=== PATIENT | male | born 1940 | race Caucasian/White ===

== ENCOUNTER 2017-03-23 20:46 | Observation (INO) ==
[2017-03-23] MEDS ORDERED: Albuterol 2.5 MG/3 ML NEBULIZER IH ONE (21:20)
[2017-03-23] MEDS ORDERED: Ondansetron 4 MG/2 ML VIAL IVP ONE (21:20)
[2017-03-23] MEDS ORDERED: *HR* Morphine 2 MG/ML SYRINGE IVP ONE ×2 (21:20→22:48)
[2017-03-23] MEDS ORDERED: Ipratropium/Albuterol Neb 3 ML IH ONE (21:20)
[2017-03-23] MEDS ORDERED: methylPREDNISolone 125 MG/2 ML VIAL IVP ONE (21:20)
--- NOTE | 2017-03-23 21:25 | Emergency Department Note ---
Disposition Clinical Impression: Pneumonia Qualifiers: Pneumonia type: due to unspecified organism Laterality: bilateral Lung location : unspecified part of lung Qualified Code(s): J18.9 - Pneumonia, unspecified organism Disposition: Admitted As Inpatient Condition: Good Referrals: Tootie Tristan CNP [Primary Care Provider] - Forms: ED Satisfaction Letter Time of Disposition: 23:27 SOB HPI - General Chief Complaint: ED Shortness of Breath/Dyspnea Stated Complaint: SOB Time Seen by Provider: 03/23/17 21:15 Source: patient, EMS Mode of arrival: EMS Limitations: no limitations Nursing Notes Reviewed: Yes Vital Signs Reviewed: Yes - History of Present Illness 76-year-old white male who presents complaining of a cough, difficulty breathing , and sharp left lower chest pain. Symptoms started 3 days ago. His cough is productive of white and yellow sputum. He is short of breath and wheezing. He denies fever at home. His pain is in his left anterior lateral chest, it is sharp, and is associated with coughing and deep breathing. Does have some mild leg swelling, he states this is new over the last 3 days or so. He does smoke, half a pack a day. Pt Subjective Complaint: shortness of breath, cough, chest pain Onset (ago): day(s) Context: recent illness (3) Severity: moderate Consistency/Duration: constant Improves with: rest Worsens with: coughing Known history of: COPD, other (Atrial fibrillation) Associated symptoms: Reports: pain with inspiration, cough Treatment prior to arrival: none Cough present: Yes Cough Description: Involuntary Cough Frequency: Intermittent Sputum production: Yes Sputum Amount: Moderate Sputum Color: Yellow - Related Data Home oxygen amount: none Home Medications Medication Instructions Recorded Confirmed Ropinirole [Requip] 5 mg PO QID 07/20/15 03/23/17 Albuterol Neb [Proventil Neb] 2.5 mg IH Q4HR 02/06/16 03/23/17 Diltiazem CD (24hr) [Cardizem CD] 120 mg PO DAILY 02/06/16 03/23/17 Fluticasone/Salmeterol [Advair 1 puff IH BID 02/06/16 03/23/17 500-50 Diskus] Rivaroxaban [Xarelto] 20 mg PO DAILY 02/06/16 03/23/17 Omeprazole 40 mg PO DAILY 07/29/16 03/23/17 Diclofenac Sodium [Voltaren] 1 appl TP BID 09/17/16 03/23/17 Albuterol Sulfate [Proair Hfa] 1 puff IH 03/23/17 Aspirin [Lo-Dose Aspirin EC] 81 mg PO DAILY 03/23/17 03/23/17 Diclofenac Sodium [Voltaren] 100 gm TP 03/23/17 Docusate Sodium [Colace] 100 mg PO BID PRN 03/23/17 03/23/17 Lisinopril/Hydrochlorothiazide 1 each PO DAILY 03/23/17 03/23/17 [Zestoretic 10-12.5 mg Tablet] Potassium Chloride [Klor-Con 10 meq PO BID 03/23/17 03/23/17 Sprinkle] Prochlorperazine Maleate 10 mg PO TID 03/23/17 03/23/17 [Compazine] Roflumilast [Daliresp] 500 mcg PO DAILY 03/23/17 03/23/17 Previous Rx's Medication Instructions Recorded Ipratropium Neb [Atrovent Neb] 0.5 mg IH Q6HR PRN #120 vial.neb 04/04/16 Megestrol Acetate [Megace] 10 ml PO BID #400 mls 05/03/16 Budesonide/Formoterol 160/4.5 2 puff IH BIDR #2 hfa.aer.ad 06/27/16 [Symbicort 160/4.5] Albuterol Sulfate [Ventolin Hfa] 2 puff IH Q4H PRN #1 hfa.aer.ad 08/27/16 Oxygen 3 l NS AD #1 each 09/19/16 Guaifenesin [Mucinex] 600 mg PO BID #60 tab.er.12h 11/21/16 Gabapentin [Neurontin] 100 mg PO TID #90 capsule 02/06/17 ALPRAZolam [Xanax 0.5 MG Tablet] 1 tab PO TID PRN #90 tablet 03/10/17 Ondansetron HCl [Zofran] 4 mg PO Q6H PRN #30 03/10/17 Oxycodone HCl/Acetaminophen 1 tab PO Q6H PRN #60 tablet 03/10/17 [Percocet 10-325 mg Tablet] Allergies Allergy/AdvReac Type Severity Reaction Status Date / Time ciprofloxacin Allergy Itching Verified 03/23/17 20:48 contrast media, iodine Allergy Anaphylaxis Uncoded 03/23/17 20:48 related All systems ED: reviewed and negative except as stated. Constitutional: Reports: chills. Denies: fever Eyes: Denies: eye discharge ENT ED: Denies: ear pain, throat pain Cardiovascular: Reports: chest pain Respiratory: Reports: cough, dyspnea, wheezes, sputum production Gastrointestinal: Denies: abdominal pain, nausea, vomiting Genitourinary: Denies: urgency, dysuria, frequency Musculoskeletal: Denies: back pain Neurological: Reports: weakness Past Medical History - Past Medical History Medical history: Reports: atrial fibrillation, cancer, CHF, COPD, coronary artery disease, GERD, hyperlipidemia, hypertension, other Surgical history: Reports: cholecystectomy, herniorrhaphy, hip replacement, other Psychiatric history: Reports: no psych history - Social History Smoking Status: Current every day smoker Smokeless Tobacco Status: No Alcohol use: Reports: none Drug use: Reports: none Physical Exam - General Limitations: no limitations General appearance: alert, in no apparent distress - Head Head exam: atraumatic, normocephalic - Eye Eye exam: Present: PERRL, EOMI. Absent: scleral icterus, conjunctival injection - ENT ENT exam: normal oropharynx, mucous membranes moist, TM's normal bilaterally - Neck Neck exam: Present: normal inspection, full ROM, trachea midline. Absent: tenderness, lymphadenopathy - Respiratory Respiratory exam: Present: wheezes (Bilateral moderate expiratory), prolonged expiratory phase, other (Decreased breath sounds in the bases with bibasilar rales). Absent: respiratory distress - Cardiovascular Cardiovascular exam: Present: tachycardia, irregular rhythm. Absent: systolic murmur, diastolic murmur - Abdominal Exam Abdominal exam: Present: soft, Non-Tender, normal bowel sounds. Absent: organomegaly, mass - Extremities Exam Extremities exam: Present: normal inspection, full ROM, other (Trace of pretibial edema nonpitting) - Neurological Exam Neurological exam: Present: alert, oriented X3. Absent: motor sensory deficit - Psychiatric Psychiatric exam: Present: normal affect, normal mood - Skin Skin exam: Present: warm, dry, intact, normal color. Absent: cyanosis, diaphoresis Course - Reevaluation(s) Reevaluation #1: Discussed with Dr. Shamar. He accepts the patient for admission. Time: 23:27 Vital Signs Temperature 101.9 F H 03/23/17 20:48 Pulse Rate 101 03/23/17 20:48 Respiratory Rate 22 03/23/17 20:48 Blood Pressure 159/78 03/23/17 20:48 O2 Sat by Pulse Oximetry 96 03/23/17 20:48 Temperature 101.9 F H 03/23/17 20:48 Pulse Rate 109 03/23/17 22:23 Respiratory Rate 18 03/23/17 22:23 Blood Pressure 148/75 03/23/17 22:23 O2 Sat by Pulse Oximetry 93 03/23/17 22:23 Oxygen Delivery Oxygen Delivery Nasal Cannula Shortness of Breath/Dyspnea - MDM Narrative Medical decision making narrative: His chest x-ray shows some new infiltrative changes which are likely pneumonia in light of his fever and productive cough. He has a history of lung cancer which is currently not being treated, is being followed by oncology. He has improved clinically with nebulizers and Solu-Medrol. He will be admitted for antibiotic therapy, continued Solu-Medrol and nebulizers. - Differential Diagnosis Likely: acute exacerbation of chronic obstructive airways disease, congestive heart failure, pneumonia, asthma with exacerbation, pneumothorax, arrhythmia - Lab Data Lab results reviewed: Yes I reviewed the patient's lab results. Result diagrams: 03/23/17 21:38 03/23/17 21:38 Lab Results 03/23/17 03/23/17 03/23/17 Range/Units 21:38 21:38 21:38 WBC 9.3 (4.3-11.1) K/mcL RBC 3.82 L (4.19-5.50) M/mcL Hgb 11.0 L (12.9-16.9) g/dL Hct 33.9 L (37.5-50.1) % MCV 88.7 (83.0-100.0) fL MCH 28.8 (28.0-33.3) pg MCHC 32.4 (31.6-35.5) g/dL RDW 15.1 H (11.5-14.5) % Plt Count 318 (140-400) K/mcL MPV 9.6 (9.4-12.4) fL VBG Lactic Acid (0.5-2.2) mmol/L Sodium 142 (136-145) mEq/L Potassium 4.4 (3.5-4.5) mEq/L Chloride 103 (98-109) mEq/L Carbon Dioxide 28 (19-29) mEq/L BUN 20 (8-26) mg/dL Creatinine 1.00 (0.72-1.25) mg/dL Est GFR ( Amer) > 60 (> 60) Est GFR (Non-Af Amer) > 60 (> 60) BUN/Creatinine Ratio 20 (6-26) Glucose 95 (70-99) mg/dL Calculated Osmolality 296 (280-300) Calcium 9.4 (8.6-10.8) mg/dL Total Bilirubin 0.3 (0.2-1.2) mg/dL AST 22 (5-34) Units/L ALT 28 (0-55) Units/L Alkaline Phosphatase 75 (38-126) Units/L Troponin I 0.02 (0-0.03) ng/mL B-Natriuretic Peptide (0-100) pg/mL Serum Total Protein 6.0 (6.0-8.3) g/dL Albumin 2.4 L (3.5-5.0) g/dL Globulin 3.6 H (2.4-3.5) g/dL Albumin/Globulin Ratio 0.7 L (1.1-2.2) 03/23/17 03/23/17 Range/Units 21:38 21:38 WBC (4.3-11.1) K/mcL RBC (4.19-5.50) M/mcL Hgb (12.9-16.9) g/dL Hct (37.5-50.1) % MCV (83.0-100.0) fL MCH (28.0-33.3) pg MCHC (31.6-35.5) g/dL RDW (11.5-14.5) % Plt Count (140-400) K/mcL MPV (9.4-12.4) fL VBG Lactic Acid 1.2 (0.5-2.2) mmol/L Sodium (136-145) mEq/L Potassium (3.5-4.5) mEq/L Chloride (98-109) mEq/L Carbon Dioxide (19-29) mEq/L BUN (8-26) mg/dL Creatinine (0.72-1.25) mg/dL Est GFR ( Amer) (> 60) Est GFR (Non-Af Amer) (> 60) BUN/Creatinine Ratio (6-26) Glucose (70-99) mg/dL Calculated Osmolality (280-300) Calcium (8.6-10.8) mg/dL Total Bilirubin (0.2-1.2) mg/dL AST (5-34) Units/L ALT (0-55) Units/L Alkaline Phosphatase (38-126) Units/L Troponin I (0-0.03) ng/mL B-Natriuretic Peptide 485 H (0-100) pg/mL Serum Total Protein (6.0-8.3) g/dL Albumin (3.5-5.0) g/dL Globulin (2.4-3.5) g/dL Albumin/Globulin Ratio (1.1-2.2) - Radiology Data Radiology results reviewed: Yes I reviewed the patient's radiology results. - EKG Data EKG attestation: Yes I reviewed and interpreted this EKG. EKG results narrative: Atrial fibrillation, rate 96, nonspecific ST-T changes. Rhythm strip shows atrial fibrillation with rate of 96, QRS of 87 ms with no other ectopy as interpreted by me. This compares to a tracing dated 12/24/16, no significant change, atrial fib is chronic.
[2017-03-23 21:48] LABS: Hematocrit 33.9 % (37.5-50.1); Mean Corpuscular HGB Conc 32.4 g/dL (31.6-35.5); Mean Corpuscular Hemoglobin 28.8 pg (28.0-33.3); Mean Corpuscular Volume 88.7 fL (83.0-100.0); Mean Platelet Volume 9.6 fL (9.4-12.4); Platelet Count 318 K/mcL (140-400); Red Blood Count 3.82 M/mcL (4.19-5.50); Red Cell Distribution Width 15.1 % (11.5-14.5)
[2017-03-23 22:06] LABS: Alanine Aminotransferase 28 Units/L (0-55); Albumin 2.4 g/dL (3.5-5.0); Albumin/Globulin Ratio 0.7 (1.1-2.2); Alkaline Phosphatase 75 Units/L (38-126); Aspartate Amino Transferase 22 Units/L (5-34); BUN/Creatinine Ratio 20 (6-26); Bilirubin,Total 0.3 mg/dL (0.2-1.2); Blood Urea Nitrogen 20 mg/dL (8-26); Calcium 9.4 mg/dL (8.6-10.8); Carbon Dioxide 28 mEq/L (19-29); Chloride 103 mEq/L (98-109); Globulin 3.6 g/dL (2.4-3.5); Glucose 95 mg/dL (70-99); Osmolality,Calculated 296 (280-300); Potassium 4.4 mEq/L (3.5-4.5); Sodium 142 mEq/L (136-145); eGFR For African Americans > 60 (> 60); eGFR For Non-African Americans > 60 (> 60)
[2017-03-23] MEDS ORDERED: Levofloxacin 500 MG/100 ML 500 MG/100 ML BAG IVPB ONE (23:27)
[2017-03-24] MEDS ORDERED: *HR* OxyCODONE/APAP 10/325 TABLET PO PRN (00:29)
[2017-03-24] MEDS ORDERED: Ipratropium Neb 0.5 MG NEBULIZER IH PRN (00:29)
[2017-03-24] MEDS ORDERED: Ondansetron ODT 4 MG TAB.RAPDIS PO PRN (00:29)
[2017-03-24] MEDS: Albuterol 2.5 MG/3 ML NEBULIZER IH SCH ×7 (01:30→23:37)
[2017-03-24] MEDS: ALPRAZolam 0.5 MG TABLET PO PRN (01:34)
[2017-03-24] MEDS ORDERED: methylPREDNISolone 125 MG/2 ML VIAL IVP SCH (08:00)
[2017-03-24] MEDS: Budesonide/Formoterol 160/4.5 MDI IH SCH ×2 (08:39→20:36)
[2017-03-24] MEDS ORDERED: *HR* Rivaroxaban 10 MG TABLET PO SCH (09:00)
[2017-03-24] MEDS: Aspirin Enteric Coated 81 MG Tablet PO SCH (09:09)
[2017-03-24] MEDS: Megestrol Acetate 400 MG/10 ML UDC PO SCH ×2 (09:09→21:05)
[2017-03-24] MEDS: Diltiazem CD (24hr) 120 MG CAPSULE PO SCH (09:09)
[2017-03-24] MEDS: Gabapentin 100 MG CAPSULE PO SCH ×3 (09:10→21:05)
[2017-03-24] MEDS: DALIRESP 500 MCG PO SCH (12:18)
[2017-03-24] MEDS: VOLTAREN GEL TP SCH (12:18)
[2017-03-24] MEDS: Isosorbide MONOnitrate (24 HR) 30 MG TAB.ER.24H PO SCH (13:35)
[2017-03-24] MEDS: Metoprolol XL (24 HR) Succ 25 MG TAB.ER.24H PO SCH (13:36)
--- NOTE | 2017-03-24 14:44 | Internal Med History&Physical ---
Date of Encounter: 03/24/17 Time of Encounter: 12:15 Assessment and Plan (1) Pneumonia Current visit: Yes Status: Acute He has been started on Levaquin. I will add lactobacillus. Will possibly discharge home tomorrow if stable. Qualifiers: Pneumonia type: due to unspecified organism Laterality: bilateral Lung location: unspecified part of lung Qualified Code(s): J18.9 - Pneumonia, unspecified organism (2) Anemia Current visit: Yes Status: Acute Anemia testing 03/10/2017 showed no factor deficiency. Qualifiers: Anemia type: unspecified type Qualified Code(s): D64.9 - Anemia, unspecified (3) Atrial fibrillation Current visit: No Status: Chronic Continue Xarelto Qualifiers: Atrial fibrillation type: chronic Qualified Code(s): I48.2 - Chronic atrial fibrillation Internal Medicine - H&P: HPI Chief complaint: Dyspnea and chest pain Admitted From: Home Plans for Post Hospital Care: Home History of present illness: Mr. Carvalho is a 76 year old male who came to emergency complaining of cough with sharp left lower anterior chest pain and dyspnea onset approximately 3 days earlier. Cough was minimal and there was little productivity. He was evaluated in emergency room and felt to have possible pneumonia. He was admitted to [facility] floor for ongoing care needs. He was hospitalized last at [facility] November 2016 with exacerbation of COPD and pneumonia. He has a diagnosis of COPD/emphysema and had PFTs 2013. He has smoked since age 12 up to 1 pack per day. He wears oxygen at home. He has had negative TIFFANIE workup in the past. 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 He had chemotherapy and XRT at time of diagnosis with additional chemotherapy February 2015 -December 2015. It was discontinued because of possible musculoskeletal side effects. He reports seeing an oncologist approximately 2 months ago without further interventions started. Past Med Surg Social Fam HX - Past Medical History Medical history: atrial fibrillation, cancer, CHF, COPD, coronary artery disease , GERD, hyperlipidemia, hypertension, other Psychiatric history: no psych history - Past Surgical History Surgical History: cholecystectomy, herniorrhaphy, hip replacement, other - Social History Smoking Status: Current every day smoker Smokeless Tobacco Status: No Alcohol use: none Drug use: none - Family History Father Adopted: No Living Status: Hx Family Cardiac Disorders: Yes Mother Adopted: No Living Status: Hx Family Cardiac Disorders: Yes Hx Family Respiratory Disorders: No Hx Family Cancer: Yes Hx Family GI Disorders: No Hx Family Endocrine Disorder: Yes Hx Family Neuromuscular Disorders: No Hx Family Neurologic Disorders: No Hx Family HEENT Disorders: No Hx Family Autoimmune Disorders: No Internal Medicine - H&P: Meds Ropinirole [Requip] 5 mg PO QID 07/20/15 [History] Albuterol Neb [Proventil Neb] 2.5 mg IH Q4HR 02/06/16 [History] Diltiazem CD (24hr) [Cardizem CD] 120 mg PO DAILY 02/06/16 [History] Fluticasone/Salmeterol [Advair 500-50 Diskus] 1 puff IH BID 02/06/16 [History] Rivaroxaban [Xarelto] 20 mg PO DAILY 02/06/16 [History] Ipratropium Neb [Atrovent Neb] 0.5 mg IH Q6HR PRN #120 vial.neb 04/04/16 [Rx] Megestrol Acetate [Megace] 10 ml PO BID #400 mls 05/03/16 [Rx] Budesonide/Formoterol 160/4.5 [Symbicort 160/4.5] 2 puff IH BIDR #2 hfa.aer.ad 06/27/16 [Rx] Omeprazole 40 mg PO DAILY 07/29/16 [History] Albuterol Sulfate [Ventolin Hfa] 2 puff IH Q4H PRN #1 hfa.aer.ad 08/27/16 [Rx] Diclofenac Sodium [Voltaren] 1 appl TP BID 09/17/16 [History] Oxygen 3 l NS AD #1 each 09/19/16 [Rx] Guaifenesin [Mucinex] 600 mg PO BID #60 tab.er.12h 11/21/16 [Rx] Gabapentin [Neurontin] 100 mg PO TID #90 capsule 02/06/17 [Rx] ALPRAZolam [Xanax 0.5 MG Tablet] 1 tab PO TID PRN #90 tablet 03/10/17 [Rx] Ondansetron HCl [Zofran] 4 mg PO Q6H PRN #30 03/10/17 [Rx] Oxycodone HCl/Acetaminophen [Percocet 10-325 mg Tablet] 1 tab PO Q6H PRN #60 tablet 03/10/17 [Rx] Albuterol Sulfate [Proair Hfa] 1 puff IH 03/23/17 [History] Aspirin [Lo-Dose Aspirin EC] 81 mg PO DAILY 03/23/17 [History] Diclofenac Sodium [Voltaren] 100 gm TP 03/23/17 [History] Docusate Sodium [Colace] 100 mg PO BID PRN 03/23/17 [History] Lisinopril/Hydrochlorothiazide [Zestoretic 10-12.5 mg Tablet] 1 each PO DAILY [History] Potassium Chloride [Klor-Con Sprinkle] 10 meq PO BID 03/23/17 [History] Prochlorperazine Maleate [Compazine] 10 mg PO TID 03/23/17 [History] Roflumilast [Daliresp] 500 mcg PO DAILY 03/23/17 [History] Allergies ciprofloxacin Allergy (Verified 03/23/17 20:48) Itching contrast media, iodine related Allergy (Uncoded 03/23/17 20:48) Anaphylaxis All Systems PM: A 10-system review of systems was performed and is negative for pertinent findings except as documented above in the HPI. Review of systems: Review of systems from the November 2016 [facility] hospitalization were reviewed and revised as below. Gen.: His weight is essentially unchanged since the January 2016 hospitalization at approximately 165 pounds. Cardiovascular: He has a history of hypertension. He had an echocardiogram which showed LVEF of 50-55%, indeterminant diastolic function secondary to atrial fibrillation, but no significant valvular abnormalities. There was LAE at 4.5 cm. The ventricular septum and posterior wall thickness measurements were 1.00 and 1.11 cm respectively. He has chronic atrial fibrillation. He has no known AR heart failure angina DVT or pulmonary embolus. Respiratory: As per history of present illness GI: He denies disorders of his liver gallbladder or exocrine pancreas. : He has known BPH. He has chronic kidney disease stage 2-3. Neurologic: Denies large distribution strokes or seizures Endocrine: He has hyperlipidemia but no known diabetes or thyroid disease Hematology/oncology: He has lung cancer as per history of present illness. He was diagnosed with colon cancer approximately 1988 but states he was healed from that. He had melanoma resection from his right flank in without recurrence. He has mild anemia with anemia testing in the past showing no factor deficiency. Psychiatric: He has anxiety and depression but denies other mental health issues. [place] skeletal: Denies arthritis gout or osteoporosis. - Constitutional Vitals: Temp Pulse Resp BP Pulse Ox 98.7 F 96 17 147/71 97 03/24/17 10:00 03/24/17 10:00 03/24/17 12:48 03/24/17 10:00 03/24/17 12:48 Exam: Gen.: He is a well-developed well-nourished male who appears in no severe distress at present time HEENT: Head is atraumatic and normocephalic. Eyes: EOMI. There is no scleral icterus. Mouth: Mucosa is moist. Neck: Supple and nontender. There is no thyromegaly or adenopathy noted. Heart: Irregularly irregular without murmurs or gallops Lungs: No wheezes or crackles are heard. He has diminished breath sounds diffusely. Abdomen: Soft and nontender. No masses or guarding are noted. Extremities: There is no cyanosis edema or clubbing noted. Dorsalis pedis and posterior tibial pulses are 1-2 over 2 bilaterally. Neurologic: Mental status: He is talkative and a good historian. Cranial nerves : Smile is symmetric. Forehead wrinkles bilaterally. Tongue protrudes midline. EOMI. Motor: There is no pronator drift. Cerebellar: Fair to nose is intact bilaterally. Skin: Warm and dry Internal Med - H&P Results - Labs CBC & Chem 7: 03/23/17 21:38 03/23/17 21:38 - VTE Reasons for not Prescribing Prophylaxis: Treatment not Indicated - Low risk for VTE
--- NOTE | 2017-03-24 17:53 | Electrocardiograph Report ---
[address] [address] Test Date: 2017-03-23 Pat Name: Nain Carvalho Department: [id number] Room: [facility] Gender: M [employer]ship: [id number] Requested By: Kamar Siu Order Number: [id number] Reading MD: Niya Wayne Measurements Intervals [place] Rate: 96 P: DE: 0 QRS: 63 QRSD: 87 T: 81 QT: 319 QTc: 373 Interpretive Statements ATRIAL FIBRILLATION ABNORMAL RHYTHM ECG Electronically Signed On 03-24-2017 17:51:20 EDT by Niya Wayne
[2017-03-24] MEDS ORDERED: rOPINIRole 1 MG TABLET PO SCH (21:00)
[2017-03-24] MEDS: Lactobacillus 1 EACH CAP.SPRINK PO SCH (21:05)
[2017-03-25] MEDS: ALPRAZolam 0.5 MG TABLET PO PRN (00:58)
[2017-03-25] MEDS: Albuterol 2.5 MG/3 ML NEBULIZER IH SCH ×2 (04:00→08:28)
[2017-03-25] MEDS: VOLTAREN GEL TP SCH ×2 (06:04→08:08)
[2017-03-25 06:28] LABS: Basophils % 0.1 %; Hematocrit 32.6 % (37.5-50.1); Hemoglobin 10.5 g/dL (12.9-16.9); Immature Granulocytes % 0.5 % (0-4); Lymphocytes # 0.4 K/mcL (0.6-4.6); Lymphocytes % 3.6 %; Mean Corpuscular HGB Conc 32.2 g/dL (31.6-35.5); Mean Corpuscular Hemoglobin 28.2 pg (28.0-33.3); Mean Corpuscular Volume 87.4 fL (83.0-100.0); Mean Platelet Volume 9.3 fL (9.4-12.4); Monocytes # 0.4 K/mcL (0.0-1.3); Neutrophils # 11.2 K/mcL (1.6-8.9); Platelet Count 355 K/mcL (140-400); Red Blood Count 3.73 M/mcL (4.19-5.50); Red Cell Distribution Width 14.6 % (11.5-14.5); Segmented Neutrophils % 92.8 %
[2017-03-25 07:12] VITALS: BP 131/62
[2017-03-25] MEDS: Metoprolol XL (24 HR) Succ 25 MG TAB.ER.24H PO SCH (08:07)
[2017-03-25] MEDS: DALIRESP 500 MCG PO SCH (08:07)
[2017-03-25] MEDS: Isosorbide MONOnitrate (24 HR) 30 MG TAB.ER.24H PO SCH (08:08)
[2017-03-25] MEDS: Lactobacillus 1 EACH CAP.SPRINK PO SCH (08:08)
[2017-03-25] MEDS: Gabapentin 100 MG CAPSULE PO SCH (08:08)
[2017-03-25] MEDS: Aspirin Enteric Coated 81 MG Tablet PO SCH (08:08)
[2017-03-25] MEDS: Diltiazem CD (24hr) 120 MG CAPSULE PO SCH (08:08)
[2017-03-25] MEDS: Megestrol Acetate 400 MG/10 ML UDC PO SCH (08:10)
[2017-03-25] MEDS: Budesonide/Formoterol 160/4.5 MDI IH SCH (08:35)
[2017-03-25] MEDS ORDERED: *HR* Rivaroxaban 15 MG TABLET PO SCH (09:00)
--- NOTE | 2017-03-25 10:03 | Discharge Summary ---
Date of Encounter: 03/25/17 Time of Encounter: 09:55 - Discharge Diagnosis (1) Pneumonia Priority: Primary Status: Acute Qualifiers: Pneumonia type: due to unspecified organism Laterality: bilateral Lung location: unspecified part of lung Qualified Code(s): J18.9 - Pneumonia, unspecified organism (2) Anemia Priority: Secondary Status: Acute Qualifiers: Anemia type: unspecified type Qualified Code(s): D64.9 - Anemia, unspecified (3) Atrial fibrillation Priority: Secondary Status: Chronic Qualifiers: Atrial fibrillation type: chronic Qualified Code(s): I48.2 - Chronic atrial fibrillation - Discharge Medications Prescriptions: HYDROcodone/Acet 5/325 mg [[place] 5-325 mg] 1 tab PO Q4H PRN #12 tab PRN Reason: Pain Lactobacillus [Culturelle] 1 each PO BID #10 cap.sprink levoFLOXacin [Levaquin] 500 mg PO DAILY #5 tablet Home Medications: Ropinirole [Requip] 5 mg PO QID 07/20/15 [History] Albuterol Neb [Proventil Neb] 2.5 mg IH Q4HR 02/06/16 [History] Diltiazem CD (24hr) [Cardizem CD] 120 mg PO DAILY 02/06/16 [History] Fluticasone/Salmeterol [Advair 500-50 Diskus] 1 puff IH BID 02/06/16 [History] Rivaroxaban [Xarelto] 20 mg PO DAILY 02/06/16 [History] Ipratropium Neb [Atrovent Neb] 0.5 mg IH Q6HR PRN #120 vial.neb 04/04/16 [Rx] Megestrol Acetate [Megace] 10 ml PO BID #400 mls 05/03/16 [Rx] Budesonide/Formoterol 160/4.5 [Symbicort 160/4.5] 2 puff IH BIDR #2 hfa.aer.ad 06/27/16 [Rx] Omeprazole 40 mg PO DAILY 07/29/16 [History] Albuterol Sulfate [Ventolin Hfa] 2 puff IH Q4H PRN #1 hfa.aer.ad 08/27/16 [Rx] Diclofenac Sodium [Voltaren] 1 appl TP BID 09/17/16 [History] Oxygen 3 l NS AD #1 each 09/19/16 [Rx] Guaifenesin [Mucinex] 600 mg PO BID #60 tab.er.12h 11/21/16 [Rx] Gabapentin [Neurontin] 100 mg PO TID #90 capsule 02/06/17 [Rx] ALPRAZolam [Xanax 0.5 MG Tablet] 1 tab PO TID PRN #90 tablet 03/10/17 [Rx] Ondansetron HCl [Zofran] 4 mg PO Q6H PRN #30 03/10/17 [Rx] Oxycodone HCl/Acetaminophen [Percocet 10-325 mg Tablet] 1 tab PO Q6H PRN #60 tablet 03/10/17 [Rx] Albuterol Sulfate [Proair Hfa] 1 puff IH 03/23/17 [History] Aspirin [Lo-Dose Aspirin EC] 81 mg PO DAILY 03/23/17 [History] Diclofenac Sodium [Voltaren] 100 gm TP 03/23/17 [History] Docusate Sodium [Colace] 100 mg PO BID PRN 03/23/17 [History] Lisinopril/Hydrochlorothiazide [Zestoretic 10-12.5 mg Tablet] 1 each PO DAILY [History] Potassium Chloride [Klor-Con Sprinkle] 10 meq PO BID 03/23/17 [History] Prochlorperazine Maleate [Compazine] 10 mg PO TID 03/23/17 [History] Roflumilast [Daliresp] 500 mcg PO DAILY 03/23/17 [History] HYDROcodone/Acet 5/325 mg [[place] 5-325 mg] 1 tab PO Q4H PRN #12 tab 03/25/17 [Rx ] Lactobacillus [Culturelle] 1 each PO BID #10 cap.sprink 03/25/17 [Rx] levoFLOXacin [Levaquin] 500 mg PO DAILY #5 tablet 03/25/17 [Rx] Allergies/Adverse Reactions: Allergies ciprofloxacin Allergy (Verified 03/23/17 20:48) Itching contrast media, iodine related Allergy (Uncoded 03/23/17 20:48) Anaphylaxis Date of admission: 03/23/17 23:46 Primary care physician: Tootie Tristan CNP - Patient Status Disposition: Home, Self-Care Condition: Good Functional capacity at discharge: independent ambulation Overall status at discharge: patient is progressing back to baseline - Discharge Instructions Follow Up With: Tootie Tristan CNP [Primary Care Provider] - 1 week - Diet and Activity Activity: resume usual activities as tolerated Diet: advance to your usual diet Hospital course: Mr. Carvalho is a 76 year old male who came to emergency complaining of cough with sharp left lower anterior chest pain and dyspnea onset approximately 3 days earlier. Cough was minimal and there was little productivity. He was evaluated in emergency room and felt to have possible pneumonia. He was admitted to [facility] for ongoing care needs. Initial orders were written by the emergency room physician. I saw him on March 24 and performed history and physical. He was started on IV Levaquin. I added lactobacillus. He remained afebrile and felt improved by the time I saw him. On March 25 he felt stable for discharge home which I felt was reasonable. He stated he would remain a nonsmoker. He will continue supplemental oxygen at home. He will continue with antibiotic and probiotic for 5 additional days at home. He will follow with his PCP Tootie Tristan CNP within 1 week. - Time Spent with Patient Total time spent providing and/or coordinating discharge services: - Constitutional Vitals: Temp Pulse Resp BP Pulse Ox 98.2 F 89 16 131/62 97 03/25/17 07:08 03/25/17 07:08 03/25/17 08:37 03/25/17 07:08 03/25/17 08:37 - VTE Reasons for not Prescribing Prophylaxis: Treatment not Indicated - Low risk for VTE
[2017-03-25] MEDS ORDERED: Levofloxacin 500 MG/100 ML 500 MG/100 ML BAG IVPB SCH (23:00)
== END 2017-03-25 11:12 | disposition home or self-care (01) ==
LOC: INPPIK 20:46 → EMEROOPIK 20:46 → INPPIK 03-24 00:01
PROVIDERS: ADMIT Internal Medicine; ATTEND Internal Medicine

== ENCOUNTER 2017-07-01 14:23 | Observation (INO) ==
--- NOTE | 2017-07-01 15:06 | Emergency Department Note ---
Disposition Clinical Impression: Community acquired pneumonia, COPD exacerbation Disposition: Admitted As Inpatient Condition: Fair Referrals: Luisa Quinteros CNP [Primary Care Provider] - Forms: ED Satisfaction Letter Time of Disposition: 16:35 ([facility]) SOB HPI - General Chief Complaint: ED Shortness of Breath/Dyspnea Stated Complaint: esequiel, ongoing x 3 weeks Time Seen by Provider: 07/01/17 14:30 Source: patient Mode of arrival: ambulatory Limitations: no limitations Nursing Notes Reviewed: Yes Vital Signs Reviewed: Yes - History of Present Illness three week history of fever cough congestion runny nose it is now getting worse intermittently been on Levaquin with no relief he saw his family physician 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 Denies: chest pain, orthopnea, lower extremity pain, polyuria, polydipsia, parasthesias, palpitations, hemoptysis, diaphoresis, nausea/vomiting , syncope, abdominal pain, sense of impending doom Treatment prior to arrival: diuretics Cough present: Yes Cough Description: Involuntary, Productive, Strong, Bronchospastic Cough Frequency: Continuous Sputum production: Yes Sputum Amount: Small Sputum Color: Yellow, Green - Related Data Home Medications Medication Instructions Recorded Confirmed Ropinirole [Requip] 5 mg PO QID 07/20/15 07/01/17 Albuterol Neb [Proventil Neb] 2.5 mg IH TID 02/06/16 07/01/17 Diltiazem CD (24hr) [Cardizem CD] 120 mg PO DAILY 02/06/16 07/01/17 Omeprazole 40 mg PO DAILY 07/29/16 07/01/17 Albuterol Sulfate [Proair Hfa] 1 puff IH 03/23/17 Diclofenac Sodium [Voltaren] 100 gm TP 03/23/17 Lisinopril/Hydrochlorothiazide 1 each PO DAILY 03/23/17 07/01/17 [Zestoretic 10-12.5 mg Tablet] Potassium Chloride [Klor-Con 10 meq PO QID 03/23/17 07/01/17 Sprinkle] Prochlorperazine Maleate 10 mg PO TID 03/23/17 07/01/17 [Compazine] Roflumilast [Daliresp] 500 mcg PO DAILY 03/23/17 07/01/17 Aspirin [Lo-Dose Aspirin EC] 81 mg PO DAILY 07/01/17 07/01/17 Budesonide/Formoterol 160/4.5 2 puff IH BIDR 07/01/17 07/01/17 [Symbicort 160/4.5] Cyanocobalamin (B-12) [Vitamin B12] 1,000 mcg IM QMONTH 07/01/17 07/01/17 Dutasteride [Avodart] 0.5 mg PO DAILY 07/01/17 07/01/17 Furosemide [Lasix] 40 mg PO DAILY 07/01/17 07/01/17 Tamsulosin [Flomax] 0.4 mg PO DAILY 07/01/17 07/01/17 Tiotropium [place] [Spiriva 4 gm IH DAILY 07/01/17 07/01/17 Respimat] guaiFENesin [Guaifenesin] 600 mg PO BID 07/01/17 07/01/17 levoFLOXacin [Levaquin] 500 mg PO DAILY 07/01/17 07/01/17 Previous Rx's Medication Instructions Recorded Budesonide/Formoterol 160/4.5 2 puff IH BIDR #2 hfa.aer.ad 06/27/16 [Symbicort 160/4.5] Albuterol Sulfate [Ventolin Hfa] 2 puff IH Q4H PRN #1 hfa.aer.ad 08/27/16 Oxygen 3 l NS AD #1 each 09/19/16 Guaifenesin [Mucinex] 600 mg PO BID #60 tab.er.12h 11/21/16 ALPRAZolam [Xanax 0.5 MG Tablet] 1 tab PO TID PRN #90 tablet 03/10/17 Ondansetron HCl [Zofran] 4 mg PO Q6H PRN #30 03/10/17 Oxycodone HCl/Acetaminophen 1 tab PO Q6H PRN #60 tablet 03/10/17 [Percocet 10-325 mg Tablet] Ascorbate Calcium [Vitamin C] 1 tab PO DAILY #30 tablet 06/09/17 Ferrous Sulfate [Iron] 1 tab PO DAILY #30 tablet 06/09/17 Allergies Allergy/AdvReac Type Severity Reaction Status Date / Time ciprofloxacin Allergy Itching Verified 07/01/17 14:24 contrast media, iodine Allergy Anaphylaxis Uncoded 07/01/17 14:24 related All systems ED: reviewed and negative except as stated. Review of Systems: As Per HPI Constitutional: Reports: fever, chills, weakness Eyes: Denies: eye pain ENT ED: Reports: congestion. Denies: ear pain, throat pain Cardiovascular: Reports: chest pain, dyspnea on exertion. Denies: palpitations Respiratory: Reports: cough, dyspnea, wheezes Gastrointestinal: Denies: abdominal pain, nausea, vomiting Genitourinary: Denies: urgency, dysuria, frequency Musculoskeletal: Denies: back pain, neck pain Integumentary: Denies: rash, abrasion Neurological: Denies: headache, weakness Psychiatric: Denies: anxiety, depression Endocrine: Denies: fatigue Hematological/Lymphatic: Denies: easy bleeding Allergic/Immunologic: Denies: facial swelling Past Medical History - Past Medical History Attestation: Yes The following information was validated with the patient. Source: patient, old records reviewed, nursing notes reviewed Medical history: Reports: atrial fibrillation, cancer, CHF, COPD, coronary artery disease, GERD, hyperlipidemia, hypertension, other Surgical history: Reports: cholecystectomy, herniorrhaphy, hip replacement, other Psychiatric history: Reports: no psych history - Social History Smoking Status: Current every day smoker Smokeless Tobacco Status: No Alcohol use: Reports: none Drug use: Reports: none Physical Exam - General Limitations: no limitations General appearance: alert, in no apparent distress - Head Head exam: atraumatic, normocephalic, normal inspection - Eye Eye exam: Present: normal appearance, PERRL, EOMI - ENT ENT exam: normal exam, normal oropharynx, mucous membranes moist, normal external ear exam - Neck Neck exam: Present: normal inspection, full ROM, trachea midline - Chest Chest inspection: Present: normal inspection, symmetric chest wall rise - Respiratory Respiratory exam: Present: wheezes, accessory muscle use, prolonged expiratory phase, other (Rhonchi noted) - Cardiovascular Cardiovascular exam: Present: regular rate, normal rhythm, normal heart sounds - Abdominal Exam Abdominal exam: Present: soft, Non-Tender, normal bowel sounds. Absent: mass, pulsatile mass - Extremities Exam Extremities exam: Present: normal inspection, full ROM, normal capillary refill. Absent: tenderness, pedal edema, joint swelling, calf tenderness - Expanded Lower Extremity Exam Neurovascular/Tendon exam: Present: normal capillary refill, normal fine/light touch Gait: observed and normal - Back Exam Back exam: Present: normal inspection, full ROM. Absent: muscle spasm - Neurological Exam Neurological exam: Present: alert, oriented X3, CN II-XII intact, normal gait - Psychiatric Psychiatric exam: Present: normal affect, normal mood - Skin Skin exam: Present: warm, dry, intact, normal color Course Course Narrative: Seen and examined given Pham jeffries chest x-ray labs obtained patient did not meet criteria for sepsis based on findings in his result patient was noted to [facility] for further treatment management Vital Signs Temperature 99.4 F 07/01/17 14:25 Pulse Rate 88 07/01/17 14:25 Respiratory Rate 20 07/01/17 14:25 Blood Pressure 132/76 07/01/17 14:25 O2 Sat by Pulse Oximetry 97 07/01/17 14:25 Temperature 99.4 F 07/01/17 14:25 Pulse Rate 86 07/01/17 15:47 Respiratory Rate 20 07/01/17 16:00 Blood Pressure 128/80 07/01/17 15:47 O2 Sat by Pulse Oximetry 98 07/01/17 16:00 Oxygen Delivery Oxygen Delivery Nasal Cannula Shortness of Breath/Dyspnea - Differential Diagnosis Likely: acute exacerbation of chronic obstructive airways disease, congestive heart failure, pneumonia - Medical Records Medical records reviewed: Yes I reviewed the patient's medical records. - Lab Data Lab results reviewed: Yes I reviewed the patient's lab results. Result diagrams: 07/01/17 15:25 07/01/17 15:25 Lab Results 07/01/17 07/01/17 07/01/17 Range/Units 15:25 15:25 15:25 WBC 7.4 (4.3-11.1) K/mcL RBC 3.62 L (4.19-5.50) M/mcL Hgb 10.6 L (12.9-16.9) g/dL Hct 32.6 L (37.5-50.1) % MCV 90.1 (83.0-100.0) fL MCH 29.3 (28.0-33.3) pg MCHC 32.5 (31.6-35.5) g/dL RDW 14.6 H (11.5-14.5) % Plt Count 148 (140-400) K/mcL MPV 9.6 (9.4-12.4) fL Immature Gran % 0.3 (0-4) % Seg Neutrophils % 81.1 % Lymphocytes % 8.4 % Monocytes % 9.3 % Eosinophils % 0.8 % Basophils % 0.1 % Neutrophils # 6.0 (1.6-8.9) K/mcL Lymphocytes # 0.6 (0.6-4.6) K/mcL Monocytes # 0.7 (0.0-1.3) K/mcL Eosinophils # 0.1 (0.0-0.6) K/mcL Basophils # 0.0 (0.0-0.2) K/mcL PT 14.0 H (9.4-12.1) Seconds INR 1.3 APTT 29.2 (26.0-36.0) Seconds Sodium (136-145) mEq/L Potassium (3.5-4.5) mEq/L Chloride (98-109) mEq/L Carbon Dioxide (19-29) mEq/L BUN (8-26) mg/dL Creatinine (0.72-1.25) mg/dL Est GFR ( Amer) (> 60) Est GFR (Non-Af Amer) (> 60) BUN/Creatinine Ratio (6-26) Glucose (70-99) mg/dL Calculated Osmolality (280-300) Lactic Acid (0.5-2.2) mmol/L Calcium (8.6-10.8) mg/dL Total Bilirubin (0.2-1.2) mg/dL AST (5-34) Units/L ALT (0-55) Units/L Alkaline Phosphatase (38-126) Units/L Troponin I (0-0.03) ng/mL Serum Total Protein (6.0-8.3) g/dL Albumin (3.5-5.0) g/dL Globulin (2.4-3.5) g/dL Albumin/Globulin Ratio (1.1-2.2) 07/01/17 07/01/17 07/01/17 Range/Units 15:25 15:25 15:25 WBC (4.3-11.1) K/mcL RBC (4.19-5.50) M/mcL Hgb (12.9-16.9) g/dL Hct (37.5-50.1) % MCV (83.0-100.0) fL MCH (28.0-33.3) pg MCHC (31.6-35.5) g/dL RDW (11.5-14.5) % Plt Count (140-400) K/mcL MPV (9.4-12.4) fL Immature Gran % (0-4) % Seg Neutrophils % % Lymphocytes % % Monocytes % % Eosinophils % % Basophils % % Neutrophils # (1.6-8.9) K/mcL Lymphocytes # (0.6-4.6) K/mcL Monocytes # (0.0-1.3) K/mcL Eosinophils # (0.0-0.6) K/mcL Basophils # (0.0-0.2) K/mcL PT (9.4-12.1) Seconds INR APTT (26.0-36.0) Seconds Sodium 141 (136-145) mEq/L Potassium 4.0 (3.5-4.5) mEq/L Chloride 99 (98-109) mEq/L Carbon Dioxide 34 H (19-29) mEq/L BUN 17 (8-26) mg/dL Creatinine 0.84 (0.72-1.25) mg/dL Est GFR ( Amer) > 60 (> 60) Est GFR (Non-Af Amer) > 60 (> 60) BUN/Creatinine Ratio 20 (6-26) Glucose 119 H (70-99) mg/dL Calculated Osmolality 295 (280-300) Lactic Acid 0.7 (0.5-2.2) mmol/L Calcium 9.4 (8.6-10.8) mg/dL Total Bilirubin 0.5 (0.2-1.2) mg/dL AST 11 (5-34) Units/L ALT 16 (0-55) Units/L Alkaline Phosphatase 69 (38-126) Units/L Troponin I 0.00 (0-0.03) ng/mL Serum Total Protein 6.0 (6.0-8.3) g/dL Albumin 2.9 L (3.5-5.0) g/dL Globulin 3.1 (2.4-3.5) g/dL Albumin/Globulin Ratio 0.9 L (1.1-2.2) - Radiology Data Radiology results reviewed: Yes I reviewed the patient's radiology results. ITS Impressions Chest X-Ray 07/01/17 15:06 IMPRESSION: Stable right upper lobe volume loss. New patchy right basilar infiltrate with volume loss and small right pleural effusion. D/ / Alex Perez MD / Alex Perez MD Interpreting Provider: Alex Perez MD - EKG Data EKG attestation: Yes I reviewed and interpreted this EKG. EKG results narrative: Atrial fib with nonspecific T waves rate 85 QRS 89 QT 337 axis L Critical Care Time Critical Care Time: No
[2017-07-01] MEDS ORDERED: Ipratropium/Albuterol Neb 3 ML IH ONE (15:07)
[2017-07-01] MEDS ORDERED: Azithromycin 500 MG in D5% in Water 250 ML IVPB ONE (15:07)
[2017-07-01] MEDS ORDERED: methylPREDNISolone 125 MG/2 ML VIAL IVP ONE (15:07)
[2017-07-01] MEDS ORDERED: 0.9 % Sodium Chloride 1,000 ML IVC SCH (15:15)
[2017-07-01 15:44] LABS: Basophils % 0.1 %; Eosinophils # 0.1 K/mcL (0.0-0.6); Eosinophils % 0.8 %; Hematocrit 32.6 % (37.5-50.1); Hemoglobin 10.6 g/dL (12.9-16.9); Immature Granulocytes % 0.3 % (0-4); Lymphocytes # 0.6 K/mcL (0.6-4.6); Lymphocytes % 8.4 %; Mean Corpuscular HGB Conc 32.5 g/dL (31.6-35.5); Mean Corpuscular Hemoglobin 29.3 pg (28.0-33.3); Mean Corpuscular Volume 90.1 fL (83.0-100.0); Mean Platelet Volume 9.6 fL (9.4-12.4); Monocytes # 0.7 K/mcL (0.0-1.3); Monocytes % 9.3 %; Platelet Count 148 K/mcL (140-400); Red Blood Count 3.62 M/mcL (4.19-5.50); Red Cell Distribution Width 14.6 % (11.5-14.5); Segmented Neutrophils % 81.1 %
[2017-07-01 15:47] LABS: INR 1.3
[2017-07-01 16:00] LABS: Alanine Aminotransferase 16 Units/L (0-55); Albumin 2.9 g/dL (3.5-5.0); Albumin/Globulin Ratio 0.9 (1.1-2.2); Alkaline Phosphatase 69 Units/L (38-126); Aspartate Amino Transferase 11 Units/L (5-34); BUN/Creatinine Ratio 20 (6-26); Bilirubin,Total 0.5 mg/dL (0.2-1.2); Blood Urea Nitrogen 17 mg/dL (8-26); Calcium 9.4 mg/dL (8.6-10.8); Carbon Dioxide 34 mEq/L (19-29); Chloride 99 mEq/L (98-109); Globulin 3.1 g/dL (2.4-3.5); Glucose 119 mg/dL (70-99); Osmolality,Calculated 295 (280-300); Sodium 141 mEq/L (136-145); eGFR For African Americans > 60 (> 60); eGFR For Non-African Americans > 60 (> 60)
[2017-07-01] MEDS ORDERED: NON-FORMULARY MEDICATION 1 EACH EACH (Ondansetron Hcl [Zofran] 4 MG) PO PRN (16:55)
[2017-07-01] MEDS ORDERED: Naloxone 0.4 MG/ML INJ IVP PRN (16:55)
[2017-07-01] MEDS ORDERED: NON-FORMULARY MEDICATION 1 EACH EACH (Oxygen [Oxygen] 3 L) NS SCH (16:55)
[2017-07-01] MEDS ORDERED: Ondansetron ODT 4 MG TAB.RAPDIS SL PRN (16:55)
[2017-07-01] MEDS: Ipratropium/Albuterol Neb 3 ML IH SCH ×2 (17:47→22:55)
[2017-07-01] MEDS: 0.9 % Sodium Chloride 1,000 ML IVC SCH (18:40)
[2017-07-01] MEDS: methylPREDNISolone 125 MG/2 ML VIAL IVP SCH ×2 (18:41→22:51)
[2017-07-01] MEDS: rOPINIRole 3 MG, rOPINIRole 2 MG PO SCH (19:50)
[2017-07-01] MEDS: *HR* OxyCODONE/APAP 10/325 TABLET PO PRN (19:51)
[2017-07-01] MEDS ORDERED: GUAIFENESIN 600 MG PO SCH (21:00)
[2017-07-01] MEDS: ALPRAZolam 0.5 MG TABLET PO PRN (22:46)
[2017-07-02] MEDS: 0.9 % Sodium Chloride 1,000 ML IVC SCH ×2 (00:27→12:24)
[2017-07-02] MEDS: Ipratropium/Albuterol Neb 3 ML IH SCH ×2 (05:33→10:35)
[2017-07-02] MEDS: *HR* OxyCODONE/APAP 10/325 TABLET PO PRN ×2 (05:52→21:01)
[2017-07-02] MEDS: methylPREDNISolone 125 MG/2 ML VIAL IVP SCH (05:53)
[2017-07-02 06:28] LABS: Hematocrit 32.1 % (37.5-50.1); Hemoglobin 10.2 g/dL (12.9-16.9); Immature Granulocytes % 0.2 % (0-4); Lymphocytes # 0.2 K/mcL (0.6-4.6); Lymphocytes % 5.4 %; Mean Corpuscular HGB Conc 31.8 g/dL (31.6-35.5); Mean Corpuscular Hemoglobin 28.4 pg (28.0-33.3); Mean Corpuscular Volume 89.4 fL (83.0-100.0); Mean Platelet Volume 10.3 fL (9.4-12.4); Monocytes # 0.1 K/mcL (0.0-1.3); Monocytes % 1.9 %; Neutrophils # 3.9 K/mcL (1.6-8.9); Platelet Count 151 K/mcL (140-400); Red Blood Count 3.59 M/mcL (4.19-5.50); Red Cell Distribution Width 14.2 % (11.5-14.5); Segmented Neutrophils % 92.5 %
[2017-07-02 06:35] LABS: INR 1.3; Prothrombin Time 13.6 Seconds (9.4-12.1)
[2017-07-02 06:37] LABS: Activated Partial Thrombo Time 28.7 Seconds (26.0-36.0)
[2017-07-02 06:48] LABS: BUN/Creatinine Ratio 19 (6-26); Blood Urea Nitrogen 15 mg/dL (8-26); Carbon Dioxide 32 mEq/L (19-29); Chloride 102 mEq/L (98-109); Glucose 230 mg/dL (70-99); Osmolality,Calculated 298 (280-300); Potassium 4.2 mEq/L (3.5-4.5); Sodium 140 mEq/L (136-145); eGFR For African Americans > 60 (> 60); eGFR For Non-African Americans > 60 (> 60)
[2017-07-02] MEDS ORDERED: Ascorbic Acid 500 MG TABLET PO SCH (09:00)
--- NOTE | 2017-07-02 11:07 | Internal Med History&Physical ---
Date of Encounter: 07/02/17 Time of Encounter: 10:40 Assessment and Plan (1) Pneumonia Current visit: No Status: Acute Presumed based on chest x-ray and clinical findings. He has been started on Rocephin and Zithromax through emergency room. I will add lactobacillus. Qualifiers: Pneumonia type: due to unspecified organism Laterality: right Lung location: lower lobe of lung Qualified Code(s): J18.1 - Lobar pneumonia, unspecified organism (2) Atrial fibrillation Current visit: No Status: Chronic It appears he is not on OAC but uses aspirin 81 mg daily. Will continue this. Qualifiers: Atrial fibrillation type: chronic Qualified Code(s): I48.2 - Chronic atrial fibrillation (3) Hypertension Current visit: No Status: Chronic Continue lisinopril, HCTZ, Lasix, and diltiazem. Qualifiers: Hypertension type: essential hypertension Qualified Code(s): I10 - Essential (primary) hypertension Internal Medicine - H&P: HPI Chief complaint: dyspnea Admitted From: Home Plans for Post Hospital Care: Home History of present illness: Mr. Carvalho is a 77 year old male who came to emergency room stating he had persistent dyspnea and productive cough. He had received prescription for Levaquin from his PCP 06/27/2017. He felt some improvement but was still dyspneic so came to emergency room. Evaluation showed possible right lower lobe pneumonia. He was admitted to [facility] floor for ongoing care needs. He was hospitalized last at [facility] February 2017 with pneumonia and exacerbation of COPD. He has a diagnosis of COPD/emphysema and had PFTs 2013. He has smoked since age 12 up to 1 pack per day. He wears oxygen at home. He has had negative TIFFANIE workup in the past. 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 He had chemotherapy and XRT at time of diagnosis with additional chemotherapy February 2015 -December 2015. It was discontinued because of possible musculoskeletal side effects. Chest CT done 06/05/2017 showed redemonstration of right hilar mass with post radiation changes in the right upper lobe. There was a new spiculated opacity in the right lower lobe possibly indicating a new metastatic lesion. 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 There was patchy alveolar groundglass opacity within the left lung posterior to the left hilum suggestive of inflammation/infection. Past Med Surg Social Fam HX - Past Medical History Medical history: atrial fibrillation, cancer, CHF, COPD, coronary artery disease , GERD, hyperlipidemia, hypertension, other Psychiatric history: no psych history - Past Surgical History Surgical History: cholecystectomy, herniorrhaphy, hip replacement, other - Social History Smoking Status: Current every day smoker Packs per day: 1 Smokeless Tobacco Status: No Alcohol use: none Drug use: none - Family History Father Adopted: No Living Status: Hx Family Cardiac Disorders: Yes Mother Adopted: No Living Status: Hx Family Cardiac Disorders: Yes Hx Family Respiratory Disorders: No Hx Family Cancer: Yes Hx Family GI Disorders: No Hx Family Endocrine Disorder: Yes Hx Family Neuromuscular Disorders: No Hx Family Neurologic Disorders: No Hx Family HEENT Disorders: No Hx Family Autoimmune Disorders: No Internal Medicine - H&P: Meds Ropinirole [Requip] 5 mg PO QID 07/20/15 [History] Albuterol Neb [Proventil Neb] 2.5 mg IH TID 02/06/16 [History] Diltiazem CD (24hr) [Cardizem CD] 120 mg PO DAILY 02/06/16 [History] Budesonide/Formoterol 160/4.5 [Symbicort 160/4.5] 2 puff IH BIDR #2 hfa.aer.ad 06/27/16 [Rx] Omeprazole 40 mg PO DAILY 07/29/16 [History] Albuterol Sulfate [Ventolin Hfa] 2 puff IH Q4H PRN #1 hfa.aer.ad 08/27/16 [Rx] Oxygen 3 l NS AD #1 each 09/19/16 [Rx] Guaifenesin [Mucinex] 600 mg PO BID #60 tab.er.12h 11/21/16 [Rx] ALPRAZolam [Xanax 0.5 MG Tablet] 1 tab PO TID PRN #90 tablet 03/10/17 [Rx] Ondansetron HCl [Zofran] 4 mg PO Q6H PRN #30 03/10/17 [Rx] Oxycodone HCl/Acetaminophen [Percocet 10-325 mg Tablet] 1 tab PO Q6H PRN #60 tablet 03/10/17 [Rx] Albuterol Sulfate [Proair Hfa] 1 puff IH 03/23/17 [History] Diclofenac Sodium [Voltaren] 100 gm TP 03/23/17 [History] Lisinopril/Hydrochlorothiazide [Zestoretic 10-12.5 mg Tablet] 1 each PO DAILY [History] Potassium Chloride [Klor-Con Sprinkle] 10 meq PO QID 03/23/17 [History] Prochlorperazine Maleate [Compazine] 10 mg PO TID 03/23/17 [History] Roflumilast [Daliresp] 500 mcg PO DAILY 03/23/17 [History] Ascorbate Calcium [Vitamin C] 1 tab PO DAILY #30 tablet 06/09/17 [Rx] Ferrous Sulfate [Iron] 1 tab PO DAILY #30 tablet 06/09/17 [Rx] Aspirin [Lo-Dose Aspirin EC] 81 mg PO DAILY 07/01/17 [History] Budesonide/Formoterol 160/4.5 [Symbicort 160/4.5] 2 puff IH BIDR 07/01/17 [ History] Cyanocobalamin (B-12) [Vitamin B12] 1,000 mcg IM QMONTH 07/01/17 [History] Dutasteride [Avodart] 0.5 mg PO DAILY 07/01/17 [History] Furosemide [Lasix] 40 mg PO DAILY 07/01/17 [History] Tamsulosin [Flomax] 0.4 mg PO DAILY 07/01/17 [History] Tiotropium [place] [Spiriva Respimat] 4 gm IH DAILY 07/01/17 [History] guaiFENesin [Guaifenesin] 600 mg PO BID 07/01/17 [History] levoFLOXacin [Levaquin] 500 mg PO DAILY 07/01/17 [History] 3 Allergy/AdvReac Type Severity Reaction Status Date / Time ciprofloxacin Allergy Itching Verified 07/01/17 14:24 contrast media, iodine Allergy Anaphylaxis Uncoded 07/01/17 14:24 related All Systems PM: A 10-system review of systems was performed and is negative for pertinent findings except as documented above in the HPI. Review of systems: Review of systems from the February 2017 [facility] hospitalization were reviewed and revised as below. Gen.: His weight is essentially unchanged since the January 2016 hospitalization at approximately 165 pounds. Cardiovascular: He has a history of hypertension. He had an echocardiogram which showed LVEF of 50-55%, indeterminant diastolic function secondary to atrial fibrillation, but no significant valvular abnormalities. There was LAE at 4.5 cm. The ventricular septum and posterior wall thickness measurements were 1.00 and 1.11 cm respectively. He has chronic atrial fibrillation. He has no known ID heart failure angina DVT or pulmonary embolus. Respiratory: As per history of present illness GI: He denies disorders of his liver gallbladder or exocrine pancreas. : He has known BPH. He has chronic kidney disease stage 2-3. Neurologic: Denies large distribution strokes or seizures Endocrine: He has hyperlipidemia but no known diabetes or thyroid disease Hematology/oncology: He has lung cancer as per history of present illness. He was diagnosed with colon cancer approximately 1988 but states he was healed from that. He had melanoma resection from his right flank in without recurrence. He has mild anemia with anemia testing in the past showing no factor deficiency. Psychiatric: He has anxiety and depression but denies other mental health issues. [place] skeletal: Denies arthritis gout or osteoporosis. - Constitutional Vitals: Temp Pulse Resp BP Pulse Ox 98.9 F 83 18 135/69 85 07/02/17 06:48 07/02/17 06:48 07/02/17 10:36 07/02/17 06:48 07/02/17 10:36 Exam: Gen.: He is a well-developed well-nourished male sitting in chair at bedside who appears in no acute distress HEENT: Head is atraumatic and normocephalic. Eyes: EOMI. There is no scleral icterus. Mouth: Mucosa is moist. Neck: Supple and nontender. There is no thyromegaly or adenopathy noted. Heart: Irregularly irregular. No murmurs or gallops are heard. Lungs: No wheezes or crackles are heard. Abdomen: Soft and nontender. Exam is limited because he is in the seated position. Extremities: There is no cyanosis edema or clubbing noted. Dorsalis pedis posterior tibial pulses are trace to 1+ palpable bilaterally. Neurologic: Mental status: He is talkative and a good historian. Cranial nerves : Smile is symmetric. Forehead wrinkles bilaterally. Tongue protrudes midline. EOMI. Motor: There is no pronator drift. Cerebellar: Finger to nose is intact bilaterally. Skin: Warm and dry Internal Med - H&P Results - Labs CBC & Chem 7: 07/02/17 05:40 07/02/17 05:40 Labs: Short CBC 07/02/17 Range/Units 05:40 WBC 4.2 L (4.3-11.1) K/mcL Hgb 10.2 L (12.9-16.9) g/dL Hct 32.1 L (37.5-50.1) % Plt Count 151 (140-400) K/mcL Neutrophils # 3.9 (1.6-8.9) K/mcL BMP 07/02/17 05:40 Sodium 140 Potassium 4.2 Chloride 102 Carbon Dioxide 32 H BUN 15 Creatinine 0.79 Glucose 230 H Calcium 9.0
[2017-07-02] MEDS: Finasteride 5 MG TABLET PO SCH (12:21)
[2017-07-02] MEDS: Aspirin Enteric Coated 81 MG Tablet PO SCH (12:21)
[2017-07-02] MEDS: Diltiazem CD (24hr) 120 MG CAPSULE PO SCH (12:21)
[2017-07-02] MEDS: Furosemide 40 MG TABLET PO SCH (12:21)
[2017-07-02] MEDS: rOPINIRole 3 MG, rOPINIRole 2 MG PO SCH ×4 (12:22→20:58)
[2017-07-02] MEDS: DALIRESP 500MCG PO SCH (12:23)
[2017-07-02] MEDS: cefTRIAXone 1,000 MG in Water for inj. (sterile) 10 ML IVP SCH (15:23)
[2017-07-02] MEDS: Azithromycin 500 MG in D5% in Water 250 ML IVPB SCH (15:37)
[2017-07-02] MEDS: Lactobacillus 1 EACH CAP.SPRINK PO SCH (20:59)
[2017-07-02] MEDS: Albuterol 2.5 MG/3 ML NEBULIZER IH PRN (21:37)
[2017-07-03] MEDS: *HR* OxyCODONE/APAP 10/325 TABLET PO PRN ×2 (03:39→22:51)
[2017-07-03] MEDS: ALPRAZolam 0.5 MG TABLET PO PRN ×2 (03:39→22:52)
[2017-07-03] MEDS: Albuterol 2.5 MG/3 ML NEBULIZER IH PRN ×2 (05:12→16:54)
[2017-07-03 05:27] LABS: Hematocrit 31.1 % (37.5-50.1); Immature Granulocytes % 0.8 % (0-4); Lymphocytes # 0.4 K/mcL (0.6-4.6); Lymphocytes % 3.7 %; Mean Corpuscular HGB Conc 32.2 g/dL (31.6-35.5); Mean Corpuscular Hemoglobin 28.3 pg (28.0-33.3); Mean Corpuscular Volume 88.1 fL (83.0-100.0); Mean Platelet Volume 9.8 fL (9.4-12.4); Monocytes % 2.9 %; Platelet Count 174 K/mcL (140-400); Red Blood Count 3.53 M/mcL (4.19-5.50); Red Cell Distribution Width 14.4 % (11.5-14.5); Segmented Neutrophils % 92.6 %
[2017-07-03 05:28] LABS: Monocytes # 0.4 K/mcL (0.0-1.3)
[2017-07-03 08:53] LABS: Iron 20 mcg/dL (65-175)
[2017-07-03] MEDS: rOPINIRole 3 MG, rOPINIRole 2 MG PO SCH ×4 (09:15→19:56)
[2017-07-03] MEDS: Finasteride 5 MG TABLET PO SCH (09:15)
[2017-07-03] MEDS: Furosemide 40 MG TABLET PO SCH (09:15)
[2017-07-03] MEDS: Lactobacillus 1 EACH CAP.SPRINK PO SCH ×2 (09:15→19:56)
[2017-07-03] MEDS: Aspirin Enteric Coated 81 MG Tablet PO SCH (09:16)
[2017-07-03] MEDS: DALIRESP 500MCG PO SCH (09:16)
[2017-07-03] MEDS: Diltiazem CD (24hr) 120 MG CAPSULE PO SCH (09:17)
--- NOTE | 2017-07-03 09:47 | Internal Med Progress Note ---
Date of Encounter: 07/03/17 Time of Encounter: 09:40 - Assessment and plan (1) Pneumonia Current Visit: No Status: Acute Assessment and plan: July 03. He is agreeable to stay until tomorrow. Continue Rocephin and Zithromax with lactobacillus. Qualifiers: Pneumonia type: due to unspecified organism Laterality: right Lung location: lower lobe of lung Qualified Code(s): J18.1 - Lobar pneumonia, unspecified organism (2) Atrial fibrillation Current Visit: No Status: Chronic Assessment and plan: July 03. Continue aspirin. Qualifiers: Atrial fibrillation type: chronic Qualified Code(s): I48.2 - Chronic atrial fibrillation (3) Hypertension Current Visit: No Status: Chronic Assessment and plan: July 03. Continue lisinopril, HCTZ, Lasix, and diltiazem Qualifiers: Hypertension type: essential hypertension Qualified Code(s): I10 - Essential (primary) hypertension - Subjective Interval history: July 03. He has no new complaints and feels better. He wishes to go home. - Constitutional Vitals: Temp Pulse Resp BP Pulse Ox 98.2 F 77 18 131/62 90 07/03/17 06:41 07/03/17 06:41 07/03/17 06:41 07/03/17 06:41 07/03/17 06:41 Exam: He is resting comfortably in a chair at bedside. Affect is overall cheerful. I reviewed his medications and lab results. Iron profile results are generally pending. Internal Medicine: Result - Labs CBC & Chem 7: 07/03/17 05:10 07/02/17 05:40 Labs: Short CBC 07/03/17 Range/Units 05:10 WBC 11.9 H D (4.3-11.1) K/mcL Hgb 10.0 L (12.9-16.9) g/dL Hct 31.1 L (37.5-50.1) % Plt Count 174 (140-400) K/mcL Neutrophils # 11.0 H (1.6-8.9) K/mcL - ABG Interpretation ABG results: PT/INR, D-dimer PT 13.6 Seconds (9.4-12.1) H 07/02/17 05:40 Consult Discharge Plan - Plan Referrals: Luisa Quinteros, SHI [Primary Care Provider] - 1 week
[2017-07-03 10:30] LABS: % Iron Saturation 7 % (20-55); Transferrin 192 mg/dL (174-364)
[2017-07-03 10:53] LABS: Ferritin 172 ng/ml (22-275)
[2017-07-03] MEDS: cefTRIAXone 1,000 MG in Water for inj. (sterile) 10 ML IVP SCH (13:59)
[2017-07-03] MEDS: Azithromycin 500 MG in D5% in Water 250 ML IVPB SCH (16:23)
[2017-07-04] MEDS: Albuterol 2.5 MG/3 ML NEBULIZER IH PRN (00:36)
[2017-07-04 05:28] LABS: Eosinophils % 0.2 %; Hematocrit 30.8 % (37.5-50.1); Hemoglobin 9.8 g/dL (12.9-16.9); Immature Granulocytes % 0.6 % (0-4); Lymphocytes # 1.1 K/mcL (0.6-4.6); Lymphocytes % 21.1 %; Mean Corpuscular HGB Conc 31.8 g/dL (31.6-35.5); Mean Corpuscular Hemoglobin 28.1 pg (28.0-33.3); Mean Corpuscular Volume 88.3 fL (83.0-100.0); Mean Platelet Volume 9.5 fL (9.4-12.4); Monocytes # 0.4 K/mcL (0.0-1.3); Neutrophils # 3.6 K/mcL (1.6-8.9); Platelet Count 168 K/mcL (140-400); Red Blood Count 3.49 M/mcL (4.19-5.50); Red Cell Distribution Width 14.3 % (11.5-14.5); Segmented Neutrophils % 71.1 %
[2017-07-04 06:29] VITALS: BP 137/85
[2017-07-04] MEDS: rOPINIRole 3 MG, rOPINIRole 2 MG PO SCH (09:40)
[2017-07-04] MEDS: Aspirin Enteric Coated 81 MG Tablet PO SCH (09:41)
[2017-07-04] MEDS: Lactobacillus 1 EACH CAP.SPRINK PO SCH (09:41)
[2017-07-04] MEDS: Diltiazem CD (24hr) 120 MG CAPSULE PO SCH (09:41)
[2017-07-04] MEDS: Finasteride 5 MG TABLET PO SCH (09:41)
[2017-07-04] MEDS: Furosemide 40 MG TABLET PO SCH (09:41)
[2017-07-04] MEDS: DALIRESP 500MCG PO SCH (09:42)
--- NOTE | 2017-07-04 09:46 | Discharge Summary ---
Date of Encounter: 07/04/17 Time of Encounter: 09:35 - Discharge Diagnosis (1) Pneumonia Priority: Primary Status: Acute Qualifiers: Pneumonia type: due to unspecified organism Laterality: right Lung location: lower lobe of lung Qualified Code(s): J18.1 - Lobar pneumonia, unspecified organism (2) Atrial fibrillation Priority: Secondary Status: Chronic Qualifiers: Atrial fibrillation type: chronic Qualified Code(s): I48.2 - Chronic atrial fibrillation (3) Hypertension Priority: Secondary Status: Chronic Qualifiers: Hypertension type: essential hypertension Qualified Code(s): I10 - Essential (primary) hypertension - Discharge Medications Prescriptions: Cefuroxime PO [Ceftin] 500 mg PO Q12HR #10 tablet Azithromycin [Zithromax] 250 mg PO DAILY #5 tablet Lactobacillus [Culturelle] 1 each PO BID #10 cap.sprink Home Medications: Ropinirole [Requip] 5 mg PO QID 07/20/15 [History] Albuterol Neb [Proventil Neb] 2.5 mg IH TID 02/06/16 [History] Diltiazem CD (24hr) [Cardizem CD] 120 mg PO DAILY 02/06/16 [History] Budesonide/Formoterol 160/4.5 [Symbicort 160/4.5] 2 puff IH BIDR #2 hfa.aer.ad 06/27/16 [Rx] Omeprazole 40 mg PO DAILY 07/29/16 [History] Albuterol Sulfate [Ventolin Hfa] 2 puff IH Q4H PRN #1 hfa.aer.ad 08/27/16 [Rx] Oxygen 3 l NS AD #1 each 09/19/16 [Rx] Guaifenesin [Mucinex] 600 mg PO BID #60 tab.er.12h 11/21/16 [Rx] ALPRAZolam [Xanax 0.5 MG Tablet] 1 tab PO TID PRN #90 tablet 03/10/17 [Rx] Ondansetron HCl [Zofran] 4 mg PO Q6H PRN #30 03/10/17 [Rx] Oxycodone HCl/Acetaminophen [Percocet 10-325 mg Tablet] 1 tab PO Q6H PRN #60 tablet 03/10/17 [Rx] Albuterol Sulfate [Proair Hfa] 1 puff IH 03/23/17 [History] Diclofenac Sodium [Voltaren] 100 gm TP 03/23/17 [History] Lisinopril/Hydrochlorothiazide [Zestoretic 10-12.5 mg Tablet] 1 each PO DAILY [History] Potassium Chloride [Klor-Con Sprinkle] 10 meq PO QID 03/23/17 [History] Prochlorperazine Maleate [Compazine] 10 mg PO TID 03/23/17 [History] Roflumilast [Daliresp] 500 mcg PO DAILY 03/23/17 [History] Ascorbate Calcium [Vitamin C] 1 tab PO DAILY #30 tablet 06/09/17 [Rx] Ferrous Sulfate [Iron] 1 tab PO DAILY #30 tablet 06/09/17 [Rx] Aspirin [Lo-Dose Aspirin EC] 81 mg PO DAILY 07/01/17 [History] Budesonide/Formoterol 160/4.5 [Symbicort 160/4.5] 2 puff IH BIDR 07/01/17 [ History] Cyanocobalamin (B-12) [Vitamin B12] 1,000 mcg IM QMONTH 07/01/17 [History] Dutasteride [Avodart] 0.5 mg PO DAILY 07/01/17 [History] Furosemide [Lasix] 40 mg PO DAILY 07/01/17 [History] Tamsulosin [Flomax] 0.4 mg PO DAILY 07/01/17 [History] Tiotropium [place] [Spiriva Respimat] 4 gm IH DAILY 07/01/17 [History] guaiFENesin [Guaifenesin] 600 mg PO BID 07/01/17 [History] Azithromycin [Zithromax] 250 mg PO DAILY #5 tablet 07/04/17 [Rx] Cefuroxime PO [Ceftin] 500 mg PO Q12HR #10 tablet 07/04/17 [Rx] Lactobacillus [Culturelle] 1 each PO BID #10 cap.sprink 07/04/17 [Rx] Allergies/Adverse Reactions: 3 Allergy/AdvReac Type Severity Reaction Status Date / Time ciprofloxacin Allergy Itching Verified 07/01/17 14:24 contrast media, iodine Allergy Anaphylaxis Uncoded 07/01/17 14:24 related Date of admission: 07/01/17 16:44 Primary care physician: Luisa Quinteros Consults: 07/01/17 18:54 Consult to Nutrition [CONS] Routine Comment: Consulting Provider: NUTRITION Reason for Dietary Consult: MST Score - Patient Status Disposition: Home, Self-Care Condition: Fair Functional capacity at discharge: independent ambulation Overall status at discharge: patient is progressing back to baseline - Discharge Instructions Follow Up With: Luisa Quinteros CNP [Primary Care Provider] - 1 week - Diet and Activity Activity: resume usual activities as tolerated, wear oxygen at all times Diet: advance to your usual diet Hospital course: Mr. Carvalho is a 77 year old male who came to emergency room stating he had persistent dyspnea and productive cough. He had received prescription for Levaquin from his PCP 06/27/2017. He felt some improvement but was still dyspneic so came to emergency room. Evaluation showed possible right lower lobe pneumonia. He was admitted to [facility] for ongoing care needs. Initial orders were written by the emergency room physician. I saw him on July 02 and performed a history and physical. He was started on IV Rocephin and Zithromax. I added lactobacillus. He had good clinical improvement with resolution of the left shift and normal WBC by day of discharge. His breathing returned to baseline and he felt stable for discharge home on July 04. He will continue with antibiotic and probiotic for 5 additional days at discharge. He will follow with his PCP Luisa Quinteros CNP within 1 week. - Time Spent with Patient Total time spent providing and/or coordinating discharge services: - Constitutional Vitals: Temp Pulse Resp BP Pulse Ox 98.2 F 90 17 137/85 99 07/04/17 06:28 07/04/17 06:28 07/04/17 06:28 07/04/17 06:28 07/04/17 06:28
[2017-07-06] MEDS ORDERED: Cyanocobalamin (B-12) 1,000 MCG/ML VIAL IM SCH (09:00)
== END 2017-07-04 11:10 | disposition home or self-care (01) ==
LOC: INPPIK 14:23 → EMEROOPIK 14:23 → INPPIK 17:24
PROVIDERS: ADMIT Internal Medicine; ATTEND Internal Medicine

== ENCOUNTER 2018-05-08 14:05 | Inpatient (IN) ==
[2018-05-08] MEDS ORDERED: *HR* OxyCODONE/APAP 10/325 TABLET PO PRN (14:52)
[2018-05-08] MEDS ORDERED: MORPHINE SUL Oral CONC 10 MG/0.5 ML ORAL.SYG PO PRN (14:52)
[2018-05-08] MEDS ORDERED: Albuterol 2.5 MG/3 ML NEBULIZER IH PRN (14:52)
[2018-05-08] MEDS ORDERED: NON-FORMULARY MEDICATION 1 EACH EACH (Oxygen [Oxygen] 3 L) NS SCH (15:00)
[2018-05-08] MEDS ORDERED: Azithromycin 500 MG VIAL IVPB SCH (15:00)
[2018-05-08] MEDS: MORPHINE SUL Oral CONC 10 MG/0.5 ML ORAL.SYG PO PRN ×2 (15:42→20:07)
[2018-05-08] MEDS: rOPINIRole 1 MG TABLET PO SCH ×2 (15:44→21:14)
[2018-05-08] MEDS: Gabapentin 300 MG CAPSULE PO SCH ×2 (15:44→21:14)
[2018-05-08] MEDS: Atropine Sulfate 1% 40 DROP/2 ML BOTTLE SL PRN (16:13)
[2018-05-08] MEDS: Lactobacillus 1 EACH CAP.SPRINK PO SCH (21:13)
[2018-05-08] MEDS: traZODone 50 MG TABLET PO SCH (21:14)
[2018-05-08] MEDS: Budesonide/Formoterol 160/4.5 1 PUFF INH IH SCH (22:15)
[2018-05-09] MEDS: MORPHINE SUL Oral CONC 10 MG/0.5 ML ORAL.SYG PO PRN ×6 (08:19→23:05)
[2018-05-09] MEDS ORDERED: CefTRIAXone 1,000 MG VIAL IVP SCH (09:00)
[2018-05-09] MEDS: Tiotropium 18 MCG inhalation IH SCH (09:01)
[2018-05-09] MEDS: Budesonide/Formoterol 160/4.5 1 PUFF INH IH SCH ×2 (09:01→21:31)
[2018-05-09] MEDS: Diltiazem CD (24hr) 120 MG CAPSULE PO SCH (09:14)
[2018-05-09] MEDS: Gabapentin 300 MG CAPSULE PO SCH ×3 (09:15→22:20)
[2018-05-09] MEDS: Lactobacillus 1 EACH CAP.SPRINK PO SCH ×2 (09:15→22:19)
[2018-05-09] MEDS: rOPINIRole 1 MG TABLET PO SCH ×3 (09:15→22:20)
--- NOTE | 2018-05-09 09:29 | Internal Med Progress Note ---
Date of Encounter: 05/09/18 Time of Encounter: : - Assessment and plan (1) Pneumonia Current Visit: No Status: Acute Assessment and plan: May 09. Continue IV Rocephin and Zithromax with lactobacillus. Qualifiers: Pneumonia type: due to unspecified organism Laterality: right Lung location: lower lobe of lung Qualified Code(s): J18.1 - Lobar pneumonia, unspecified organism (2) Anemia Current Visit: No Status: Acute Assessment and plan: May 09. Anemia testing in acute-care showed iron less than 10, transferrin 183, ferritin 163, B12 393, and folate 11.3. Will not workup or treat further. Qualifiers: Anemia type: unspecified type Qualified Code(s): D64.9 - Anemia, unspecified (3) NENITA (acute kidney injury) Current Visit: No Status: Acute Assessment and plan: May 09. BUN and creatinine on May 08 were 57 and 3.10 respectively with estimated GFR of 20. (4) Squamous cell carcinoma of right lung Current Visit: No Status: Chronic Assessment and plan: May 09. Will not workup or treat further. (5) Atrial fibrillation Current Visit: No Status: Chronic Assessment and plan: May 09. Continue Xarelto. Qualifiers: Atrial fibrillation type: chronic Qualified Code(s): I48.2 - Chronic atrial fibrillation - Subjective Interval history: Altagracia 15. He was hospitalized in acute-care May 06 after presenting with dyspnea and cough. Chest CT showed bilateral pneumonia with right hilar mass causing right middle lobe bronchus obstruction. He had known history of right lung SCC and undergone multiple treatment courses since diagnosed in 2011. After considerable discussion patient and family agreed to change to hospice but continue IV antibiotics. He has no new complaints today. - Constitutional Vitals: Temp Pulse Resp BP Pulse Ox 98.7 F 92 24 66/40 90 05/09/18 08:43 05/09/18 08:43 05/09/18 09:02 05/09/18 08:43 05/09/18 09:02 Exam: He is resting comfortably in bed and appears in no acute distress. His heart is irregularly irregular. Lungs show diminished breath sounds anteriorly but no wheezes or crackles. He is confused and slightly lethargic. I reviewed his vital signs and medications. Consult Discharge Plan - Plan Referrals: Luisa Quinteros, [facility] [Primary Care Provider] - 1 week
[2018-05-09] MEDS ORDERED: cefTRIAXone 1,000 MG in Water for inj. (sterile) 10 ML IVPB SCH (10:00)
[2018-05-09] MEDS ORDERED: Azithromycin 500 MG in D5% in Water 250 ML IVPB SCH (10:00)
[2018-05-09] MEDS ORDERED: *HR* Rivaroxaban 15 MG TABLET PO SCH (17:00)
[2018-05-09] MEDS: Atropine Sulfate 1% 40 DROP/2 ML BOTTLE SL PRN ×2 (20:24→23:05)
[2018-05-09] MEDS: *HR* LORazepam Oral Conc 2 MG/ML PO PRN (21:59)
[2018-05-09] MEDS: traZODone 50 MG TABLET PO SCH (22:20)
[2018-05-10] MEDS: MORPHINE SUL Oral CONC 10 MG/0.5 ML ORAL.SYG PO PRN ×3 (00:28→05:12)
[2018-05-10] MEDS: Atropine Sulfate 1% 40 DROP/2 ML BOTTLE SL PRN ×3 (03:17→07:35)
[2018-05-10] MEDS: *HR* LORazepam Oral Conc 2 MG/ML PO PRN (05:36)
[2018-05-10] MEDS: Diltiazem CD (24hr) 120 MG CAPSULE PO SCH (07:37)
[2018-05-10] MEDS: Lactobacillus 1 EACH CAP.SPRINK PO SCH (07:38)
[2018-05-10] MEDS: Gabapentin 300 MG CAPSULE PO SCH (07:38)
[2018-05-10] MEDS: rOPINIRole 1 MG TABLET PO SCH (07:39)
[2018-05-10 08:07] VITALS: BP 66/27
[2018-05-10] MEDS: Tiotropium 18 MCG inhalation IH SCH (09:01)
[2018-05-10] MEDS: Budesonide/Formoterol 160/4.5 1 PUFF INH IH SCH (09:04)
--- NOTE | 2018-05-10 10:48 | Discharge Summary ---
Date of Encounter: 05/10/18 Time of Encounter: 10:45 - Discharge Diagnosis (1) Pneumonia Priority: Primary Status: Acute Qualifiers: Pneumonia type: due to unspecified organism Laterality: right Lung location: lower lobe of lung Qualified Code(s): J18.1 - Lobar pneumonia, unspecified organism (2) Squamous cell carcinoma of right lung Priority: Secondary Status: Chronic (3) Anemia Priority: Secondary Status: Acute Qualifiers: Anemia type: unspecified type Qualified Code(s): D64.9 - Anemia, unspecified (4) NENITA (acute kidney injury) Priority: Secondary Status: Acute (5) Atrial fibrillation Priority: Secondary Status: Chronic Qualifiers: Atrial fibrillation type: chronic Qualified Code(s): I48.2 - Chronic atrial fibrillation Hospital course: Mr. Carvalho is a 78 year old male who was hospitalized in acute-care May 06 after presenting with dyspnea and cough. Chest CT showed bilateral pneumonia with right hilar mass causing right middle lobe bronchus obstruction. He had known history of right lung SCC and undergone multiple treatment courses since diagnosed in 2011. After considerable discussion patient and family agreed to change to hospice but continue IV antibiotics. Hospice services were provided through his stay. He continued on IV Rocephin and Zithromax in hospice care. He had gradual decline and at 0915 on May 10 he was found without pulse or respirations and was pronounced . No resuscitative efforts were done as per advanced directives. - Time Spent with Patient Total time spent providing and/or coordinating discharge services: - Discharge Medications Home Medications: Ropinirole [Requip] 5 mg PO TID 07/20/15 [History] Diltiazem CD (24hr) [Cardizem CD] 120 mg PO DAILY 02/06/16 [History] Omeprazole 40 mg PO DAILY 07/29/16 [History] Oxygen 3 l NS AD #1 each 09/19/16 [Rx] Oxycodone HCl/Acetaminophen [Percocet 10-325 mg Tablet] 1 tab PO Q6H PRN #60 tablet 03/10/17 [Rx] Potassium Chloride [Klor-Con Sprinkle] 10 meq PO QID 03/23/17 [History] Budesonide/Formoterol 160/4.5 [Symbicort 160/4.5] 2 puff IH BIDR 11/07/17 [ History] Tiotropium [place] [Spiriva Respimat] 4 gm IH DAILY 07/01/17 [History] Rivaroxaban [Xarelto] 20 mg PO DAILY 08/05/17 [History] Docusate [Colace] 100 mg PO DAILY #30 capsule 09/29/17 [Rx] Gabapentin [Neurontin] 600 mg PO TID 09/30/17 [History] traZODone [TraZODone] 100 mg PO HS 05/06/18 [History] Albuterol Neb [Proventil Neb] 2.5 mg IH Q2H PRN #0 05/08/18 [Rx] Atropine Sulfate in 0.9% NaCl [Atropine 0.01%-Ns Eye Drops] 2 drop SL Q2H PRN # 1 bottle 05/08/18 [Rx] Azithromycin [Zithromax] 500 mg IVPB Q24H vial 05/08/18 [Rx] LORazepam Oral Conc [Ativan Oral Conc] 2 mg PO Q2H PRN 10 Days #120 mls [Rx] Lactobacillus [Culturelle] 1 each PO BID cap.sprink 05/08/18 [Rx] MORPHINE SUL Oral CONC [Roxanol Oral Conc] 10 mg PO Q1H PRN 10 Days #120 ml [Rx] cefTRIAXone [Rocephin] 1,000 mg IVP DAILY vial 05/08/18 [Rx] Allergies/Adverse Reactions: 3 Allergy/AdvReac Type Severity Reaction Status Date / Time ciprofloxacin Allergy Itching Verified 09/30/17 09:26 contrast media, iodine Allergy Anaphylaxis Uncoded 08/05/17 14:29 related Date of admission: 05/08/18 14:22 Primary care physician: Luisa Quinteros - Constitutional Vitals: Temp Pulse Resp BP Pulse Ox 97.1 F L 120 14 66/27 93 05/10/18 08:05 05/10/18 08:05 05/10/18 08:05 05/10/18 08:05 05/10/18 08:05 - Patient Status Disposition: - Discharge Instructions Follow Up With: Luisa Quinteros, [employer]OCIATE PAST[employer] [Primary Care Provider] - 1 week
== END 2018-05-10 12:00 | disposition expired | DRG 194 ==
LOC: INPPIK 14:22
PROVIDERS: ADMIT Internal Medicine; ATTEND Internal Medicine